=== PATIENT | female | born 1960 | race African-American/Black ===

== ENCOUNTER 2017-01-09 19:51 | Emergency (ER) | payer BC ==
--- NOTE | ~2017-01-09 | CR255 ---
[facility] A Service of [facility] & [facility] RADIOLOGY TEXT RESULTS PATIENT: BRANDON MARIANO LOCATION: CFTX : [id number] UNIT #: [id number] AGE: [address]: HEMANTH ADAM APRN SEX: F ORDER DR: [id number] [facility] [address] [facility]. [place], [place] [address] [id number] MR#: [id number] Acc #: [id number] NAME: BRANDON MARIANO. : 1960 SEX: F STUDY DATE/TIME: 01/09/2017 20:04 UNIT: [facility] ROOM: STUDY DESCRIPTION: CR Toe 2 Views 2Nd Rt Attending Physician: Hemanth Adam Aprn Ordering Physician: Hemanth Adam Aprn Primary Care Physician: Kelly Costa M.D. MEDICAL IMAGING REPORT This report is preliminary unless electronic signature is present EXAM Right second toe radiographs INDICATION Kicked a bed. Pain and swelling of the second toe. FINDINGS 3 views of the right second digit without comparison. There is a nondisplaced oblique fracture through the mid shaft of the proximal phalanx, second toe. No dislocation. No foreign body. IMPRESSION Nondisplaced oblique fracture through the mid shaft of the proximal phalanx, second toe. Dictated by... Bryce Britton M.D. THIS IS AN ELECTRONICALLY VERIFIED REPORT Bryce Britton M.D. at 01/10/2017 12:15 PM DOROTHY/natalie TD: 01/10/2017 10:22 JOB #: [id number] MEDICAL IMAGING REPORT COPY
== END 2017-01-09 20:55 | disposition home or self-care (01) ==
LOC: CFTX 19:51
DX: S92.911A Unspecified fracture of right toe(s), initial encounter for closed fracture (principal); L03.115 Cellulitis of right lower limb; E11.9 Type 2 diabetes mellitus without complications; W50.1XXA Accidental kick by another person, initial encounter; Y92.009 Unspecified place in unspecified non-institutional (private) residence as the place of occurrence of the external cause
CPT/HCPCS: 29405; 73660; 96372; 99283; J1885